=== PATIENT | male | born 1970 | race African-American/Black ===

== ENCOUNTER 2021-09-02 18:58 | Emergency (ER) | payer OTHER ==
[~2021-09-02] VITALS: Ht 185.4 cm; Wt 100.8 kg
[2021-09-02 19:23] VITALS: BP 143/99
[2021-09-02] MEDS ORDERED: AMOX1TAB61 PO (19:42)
--- NOTE | 2021-09-02 19:42 | PHYS DOC ---
Past History Additional Past Medical Histor: CHRONIC BACK PAIN, SLEEP APNEA, SEASONAL ALLERGIES Past Surgical History: Other Additional Past Surgical Histo: KNEE SX, SHOULDER SX, TRIGGER FINGER Alcohol Use: Occasionally General Adult EDM: Chief Complaint: COUGH HPI: HPI: 51-year-old male presents with cough, congestion, sinus pressure of the maxillary sinuses for about 2 weeks. He has only had a cough and body aches for a couple of days. He tested negative for COVID-19 a couple weeks ago. He was vaccinated against COVID-19. He does get sinus infections about once a year and this feels similar. His is also sick. Denies fever or chills. Review of Systems: Review of Systems: Constitutional: Denies fever or chills. Body aches, fatigue Eyes: Denies change in visual acuity HENT: Maxillary sinus pain bilaterally Respiratory: Cough without shortness of breath Cardiovascular: Denies chest pain or edema GI: Denies abdominal pain, nausea, vomiting, bloody stools or diarrhea : Denies dysuria Musculoskeletal: Denies back pain or joint pain Integument: Denies rash Neurologic: Denies headache, focal weakness or sensory changes Endocrine: Denies polyuria or polydipsia Lymphatic: Denies swollen glands Psychiatric: Denies depression or anxiety Allergies: Allergies: Allergies Coded Allergies Type Severity Reaction Last Updated Verified No Known Drug Allergies 09/02/21 No Physical Exam: PE: Constitutional: Well developed, well nourished, no acute distress, non-toxic appearance. [] HENT: Normocephalic, atraumatic, bilateral external ears normal, oropharynx moist, no oral exudates, nose normal. Tenderness over maxillary sinuses bilaterally [] Eyes: PERRLA, EOMI, conjunctiva normal, no discharge. [] Neck: Normal range of motion, no tenderness, supple, no stridor. [] Cardiovascular: Heart rate regular rhythm, no murmur [] Lungs & Thorax: Bilateral breath sounds clear to auscultation [] Abdomen: Bowel sounds normal, soft, no tenderness, no masses, no pulsatile masses. [] Skin: Warm, dry, no erythema, no rash. [] Back: No tenderness, no CVA tenderness. [] Extremities: No tenderness, no cyanosis, no clubbing, ROM intact, no edema. [] Neurologic: Alert and oriented X 3, normal motor function, normal sensory function, no focal deficits noted. [] Psychologic: Affect normal, judgement normal, mood normal. [] Current Patient Data: Vital Signs: Vital Signs Date Time Temp Pulse Resp B/P (MAP) Pulse Ox O2 Delivery O2 Flow Rate FiO2 09/02/21 19:23 99.1 68 18 143/99 (114) 100 Room Air EKG: EKG: [] Radiology/Procedures: Radiology/Procedures: [] Heart Score: C/O Chest Pain: N/A Risk Factors: Risk Factors: DM, Current or recent (<one month) smoker, HTN, HLP, family history of CAD, obesity. Risk Scores: Score 0 - 3: 2.5% MACE over next 6 weeks - Discharge Home Score 4 - 6: 20.3% MACE over next 6 weeks - Admit for Clinical Observation Score 7 - 10: 72.7% MACE over next 6 weeks - Early Invasive Strategies Course & Med Decision Making: Course & Med Decision Making Pertinent Labs and Imaging studies reviewed. (See chart for details) Patient appears to have sinusitis which could be bacterial. I will treat him with Augmentin and give the first dose in the ED. He could also have Covid so we have tested him and results are pending and he will be notified with results in 1 to 2 days. He is stable for discharge at this time. [] Kaylee Disclaimer: Kaylee Disclaimer: This electronic medical record was generated, in whole or in part, using a voice recognition dictation system. Departure Departure: Impression: Primary Impression: Sinusitis, acute maxillary Qualified Codes: J01.00 - Acute maxillary sinusitis, unspecified Additional Impression: Suspected COVID-19 virus infection Disposition: HOME / SELF CARE / HOMELESS Condition: STABLE Referrals: [facility] (PCP) Patient Instructions: Sinusitis, [id number] Scripts Amoxicillin/Potassium Clav (AUGMENTIN [id number] TABLET) 1 Each Tablet 1 TAB PO BID for sinusitis for 7 Days, #14 TAB 0 Refills Prov: LORELEI GONZALES DO 09/02/21 LORELEI GONZALES DO Sep 02, 2021 19:42
[2021-09-02] MEDS ORDERED: BENZ-8 PO (19:53)
[2021-09-02] MEDS ORDERED: AMOXICILLIN/K CLAV 875/125MG TABLET. PO ONE (20:00)
[2021-09-02] MEDS ORDERED: BENZONATATE 100 MG CAPSULE. PO ONE (20:00)
== END 2021-09-02 19:58 | disposition home or self-care (01) ==
LOC: ER 18:58
DX: U07.1 COVID-19 (principal); J01.00 Acute maxillary sinusitis, unspecified; G89.29 Other chronic pain
CPT/HCPCS: 99283; C9803; U0003